=== PATIENT | male | born 1970 | race Two or more races ===

== ENCOUNTER 2021-11-06 14:26 | Emergency (ER) | payer OTHER ==
[~2021-11-06] VITALS: Ht 188 cm; Wt 99.8 kg
--- NOTE | 2021-11-06 14:50 | NUR ---
BIBTYLER OTB C/O SEEING FLOATERS "I HIT MY LEFT SIDE OF MY HEAD INSIDE THE POLICE CAR". THE PATIENT IS ALERT AND ORIENTED X4. DENIES PAIN AT THIS TIME. WILL CONTINUE TO MONITOR THE PATIENT.
--- NOTE | 2021-11-06 15:00 | NUR ---
TAKEN TO CT VIA WHEELCHAIR WITH [employer]
[2021-11-06 16:39] VITALS: BP 127/67
--- NOTE | 2021-11-06 16:39 | NUR ---
Patient discharged in stable condition with [employer]. Written and verbal after care instructions given. Patient and [employer] officers verbalized understanding of instruction.
== END 2021-11-06 16:39 ==
LOC: ER 14:34
DX: S09.90XA Unspecified injury of head, initial encounter (principal); Y08.89XA Assault by other specified means, initial encounter; Y93.89 Activity, other specified; Y92.89 Other specified places as the place of occurrence of the external cause; Y99.8 Other external cause status
CPT/HCPCS: 70450-TC